=== PATIENT | female | born 1980 | race Caucasian/White ===

== ENCOUNTER → 2018-09-25 | Outpatient (CLI) | payer BC ==
[~2018-09-25] MED LIST: MULVITMINE PO; ONDA8ODT MM; PROM25 PO; VENL75ER PO
== END | disposition home or self-care (01) ==
LOC: LAB 19:00 → LAB SHORT 19:00
DX: R30.0 Dysuria (principal)
CPT/HCPCS: 87077; 87086; 87186

== ENCOUNTER → 2019-06-14 | Outpatient (CLI) | payer OTHER, BC ==
[2019-06-15 05:08] LABS: HIV SCREEN 4TH GENERATION WRFX Non Reactive (Non Reactive)
[2019-06-15 06:08] LABS: HBSAG SCREEN Negative (Negative); HCV ANTIBODY 0.1 (0.0-0.9)
== END ==
LOC: LAB EV 09:58 → LAB SHORT 09:58
PROVIDERS: General Practice
DX: Z20.9 Contact with and (suspected) exposure to unspecified communicable disease (principal)
CPT/HCPCS: 84460; 86317; 86803; 87340; 87389

== ENCOUNTER 2024-05-29 09:31 | Day surgery (SDC) | payer BC ==
[~2024-05-29] VITALS: Ht 175.3 cm; Wt 61.0 kg
[2024-05-29] MEDS ORDERED: RIZATRIPTAN10 M3 (10:16)
[2024-05-29] MEDS ORDERED: Midazolam HCL 1 MG/ML 5MLVIAL ONE (10:19)
[2024-05-29] MEDS ORDERED: propofoL 50 ML IV ONE (10:22)
[2024-05-29] MEDS ORDERED: Lactated Ringer's 1,000 ML IV ONE ×2 (10:23→10:40)
--- NOTE | 2024-05-29 10:42 | NUR ---
05/29/24 1042 Dahlia Weinstein 1ST IV ATTEMPT INFILTRATED, ATTEMPTED BY YUSEF VILLAGOMEZ IN R[facility] 2ND IV ATTEMPT SUCCESSFULL, RH, STARTED BY DAHLIARN
[2024-05-29 12:22] VITALS: BP 101/59
== END 2024-05-29 12:17 | disposition home or self-care (01) ==
LOC: ORSCSDS 09:31
PROVIDERS: Internal Medicine Gastroenterology
PROC: 0DBL8ZX Excision of Transverse Colon, Via Natural or Artificial Opening Endoscopic, Diagnostic (ICD-10-PCS; principal; 2024-05-29 11:00)
PROC: 0DBP8ZX Excision of Rectum, Via Natural or Artificial Opening Endoscopic, Diagnostic (ICD-10-PCS; principal; 2024-05-29 11:00)
DX: Z12.11 Encounter for screening for malignant neoplasm of colon (principal); K63.5 Polyp of colon; K62.1 Rectal polyp; K63.89 Other specified diseases of intestine; Z79.899 Other long term (current) drug therapy
CPT/HCPCS: 88305; J2250; J2704; J7120